=== PATIENT | female | born 1995 | race Two or more races ===

== ENCOUNTER 2024-08-19 15:33 | Observation (INO) | payer MEDICAID, SELFPAY ==
[2024-08-19] VITALS (32 sets, daily range): BP systolic 123–196; BP diastolic 68–109; PULSE 73–92; RESP 18–99; TEMP 36.6–37; BMI 50.0
[2024-08-19] MEDS: LABETALOL 100 MG TABLET 200 MG PO (15:58)
--- NOTE | 2024-08-19 16:23 | PD.LDHP ---
Documentation for date of: 08/19/24 OB Labor/Induct. HPI History of Present Illness : 1 History of present illness: 29 y/o @36w dated by 21 wk US , was being seen for an NST. Patient is a Chronic HTN on labetalol . Today on arrival, the BP was in 150 systolic. Increase in labetalol was ordered, however she went to persistent severe range on consecutive measurements. Patient denies any preclampsia symptoms of headache, blurred vision, chest pain or SOB. Patient is also a Type 2 DM on insulin. History of Present Dating criteria: based on 2nd trimester US only Labs Narrative: NIPT wnl Anatomy scan wnl GC negative Review of Systems Review of Systems Systems Reviewed: All systems reviewed, normal except as documented Constitutional Constitutional: Denies fever(s) Cardiovascular Cardiovascular: Denies chest pain and Denies dyspnea Respiratory Respiratory: Denies cough and Denies dyspnea Musculoskeletal Musculoskeletal: Reports as per HPI Meds Home Medications and Allergies Allergies Allergy/AdvReac Type Severity Reaction Status Date / Time No Known Allergies Allergy Verified 03/08/20 11:48 OB Exam Physical Exam Vital signs: Pulse BP 84 191/103 H 08/19/24 16:17 08/19/24 16:17 Constitutional Constitutional: no acute distress Routine HEENT Exam Head: Present normocephalic and atraumatic Eye: Present EOMI and PERRL ENT: Present mucous membranes moist Routine Neck Exam Neck: Present supple and trachea midline Routine Cardiovascular Exam Cardiovascular: Present RRR Routine Abdominal Exam Abdominal: Present soft and normoactive bowel sounds Routine Extremities Exam Extremities: Present full ROM Routine Skin Exam Skin: Present intact, dry and warm Routine Neurological Exam Neurological: Present alert, oriented X3 and CN II-XII intact Routine Psychiatric Exam Psychiatric: Present normal affect and normal thought process OB Results Labs 08/19/24 16:06 08/19/24 16:06 Impressions Impression: 29 y/o @36w per 2nd trimester US, admitted for observation Labetalol IV 20 given for severe BP (BP cuff was adjusted to an appropriate size, possibility of inappropriate reading cannot be excluded at 1546 to 1617) CHTN , on meds >incraesed labetalol to 400 [facility]ID [facility] BP measurements were under control All preclampsia labs wnl asymptomatic type 2 DM on insulin lantus 30 bedtime cephalic on US OB Assessment & Plan Additional Plan Additional Plan Comment: Admit for Serial BP monitoring and observation Continuos FHT monitoring IV labetalol for BP control was already given BMZ for pulmonary maturity BS check 4 times daily , lantus to continue, Sliding scale added for covering incraese of BS with insulin GBS collection
[2024-08-19 16:31] LABS: Basophils % (Auto) 0 % (0-2.5); Eosinophils % (Auto) 0 % (0-10); Hemoglobin 10.7 g/dL (12.0-16.0); Immature Granulocytes % (Auto) 0 % (0-0); Immature Granulocytes Auto 0.03 Thou/mm3 (0.00-0.00); Lymphocytes # (Auto) 1.9 Thou/mm3 (1.0-4.8); Lymphocytes % (Auto) 20 % (10-50); Mean Corpuscular HGB Conc 33.4 g/dl (31.0-37.0); Mean Corpuscular Hemoglobin 28.7 pg (25.0-35.0); Mean Corpuscular Volume 86 fL (80-100); Monocytes # (Auto) 0.5 Thou/mm3 (0.0-0.8); Monocytes % (Auto) 6 % (0-12); Neutrophils # (Auto) 6.9 Thou/mm3 (1.8-7.7); Neutrophils % (Auto) 73 % (37-80); Nucleated Red Blood Cell % 0 /100 WBC (0); Platelet Count 166 Thou/mm3 (140-440); Red Blood Count 3.73 Miln/mm3 (4.00-5.20); White Blood Count 9.4 Thou/mm3 (3.6-11.0)
[2024-08-19] MEDS: LABETALOL INJ 5 MG/ML VIAL 20 ML 20 MG IVP (16:50)
[2024-08-19 16:53] LABS: INR 0.9 (0.9-1.3); Partial Thromboplastin Time 25.6 Seconds (22.0-36.0); Prothrombin Time 10.3 Seconds (9.0-12.2)
[2024-08-19 16:54] LABS: Fibrinogen 660 mg/dL (175-375)
[2024-08-19 16:56] LABS: Alanine Aminotransferase 11 U/L (10-49); Albumin, Serum 3.7 gm/dL (3.5-5.0); Albumin/Globulin Ratio 1.2 (1.2-2.2); Alkaline Phosphatase 107 U/L (46-116); Anion Gap 8 (7-16); Aspartate Amino Transferase 14 U/L (0-34); BUN/Creatinine Ratio 14 Ratio (12-20); Bilirubin,Total 0.3 mg/dL (0.3-1.2); Blood Urea Nitrogen 11 mg/dL (9-23); Calcium 9.5 mg/dL (8.3-10.6); Calcium (Corrected) 9.7 mg/dL (8.5-10.1); Carbon Dioxide 21.8 mMol/L (20.0-31.0); Chloride 107 mMol/L (98-107); Creatinine (Component) 0.8 mg/dL (0.6-1.3); Globulin 3.1 gm/dL (2.3-3.5); Glucose 123 mg/dL (74-106); Osmolality,Calculated 274 (275-295); Sodium 137 mMol/L (136-145); Total Protein 6.8 gm/dL (5.7-8.2); eGFR > 60 See Note
[2024-08-19] MEDS: BETAMET ACET/BETAMET NA PH (Celestone) 6 MG/ML VIAL 12 MG IM (17:31)
[2024-08-19 17:57] LABS: Collection Type, Urine Clean Catch
[2024-08-19 18:15] LABS: LDH (Lactate Dehydrogenase) 196 U/L (120-246); Uric Acid 6.1 mg/dL (3.1-7.8)
[2024-08-19 18:41] LABS: Syphilis Nonreactive (Nonreactive)
[2024-08-19 18:47] LABS: Bacteria,Urine Rare; Bilirubin,Urine Negative (Negative); Blood,Urine Negative (Negative); Clarity,Urine Clear (Clear/Hazy); Color,Urine Lt-Yellow (Lt Yel-Yel); Glucose, Urine Negative (Negative); Ketones,Urine Negative (Negative); Leukocyte Esterase,Urine Positive (Negative); Nitrite,Urine Negative (Negative); PH,Urine 6.5 (5.0-7.0); Protein,Urine Negative (Neg - Trace); RBC,Urine 1 /hpf (0-3); Specific Gravity,Urine 1.021 (1.001-1.035); Squamous Epithelial Cell,Urine 5 /hpf (0-5); Urobilinogen,Urine Negative mg/dL (0.0-1.0); WBC,Urine 2 /hpf (0-5)
[2024-08-19] MEDS: INSULIN HUM REGULAR 1 UNIT/0.01 ML (PER UNIT) SC (21:40)
[2024-08-19] MEDS: INSULIN GLARGINE (Lantus) 5 UNIT/0.05 ML (PER 5 UNITS) 30 UNIT SC (22:33)
[2024-08-20] VITALS (29 sets, daily range): BP systolic 105–150; BP diastolic 56–85; PULSE 70–101; RESP 16–17; TEMP 36.4–36.8
[2024-08-20] MEDS: INSULIN GLARGINE (Lantus) 5 UNIT/0.05 ML (PER 5 UNITS) 10 UNIT SC (08:23)
[2024-08-20] MEDS: LABETALOL 100 MG TABLET 400 MG PO (08:25)
--- NOTE | 2024-08-20 12:25 | PC.NURSE ---
PT IS NOT ON MAGNESIUM SULFATE, NO DAILY WEIGHT NEEDED
[2024-08-20] MEDS: INSULIN HUM REGULAR 1 UNIT/0.01 ML (PER UNIT) SC (13:16)
--- NOTE | 2024-08-20 13:17 | PC.NURSE ---
INSULIN ORDER IS 1HOUR AFTER MEALS
--- NOTE | 2024-08-20 14:06 | XR_ITS ---
Examination: Complete OB ultrasound greater than 14 weeks Date and time of exam: August 20, 2024 1426 hours INDICATIONS: Diagnosis -induced hypertension, secondary diagnosis type 2 diabetes, preop labor induction Findings: Viable intrauterine single fetus with single amniotic sac presentation cephalic Cardiac motion 157 BPM Placenta posterior grade 2 Umbilical cord insertion 3 vessel seen Amniotic fluid index 10.0 cm spine anterior Cervix 2.7 cm Ovaries obscured by bowel gas. Composite estimated gestational age based on BPD, head circumference, abdominal circumference, femur length is 35 weeks 6 days Estimated weight 2843 g. Survey of intracranial anatomy, spinal anatomy, abdominal anatomy, four-chamber heart performed with no abnormalities identified. Impression: Viable intrauterine gestation cephalic presentation.
--- NOTE | 2024-08-20 14:07 | XR_ITS ---
Examination: Biophysical profile, ultrasound Date and time of exam: August 20, 2024 1416 hours INDICATIONS: -induced hypertension, secondary diagnosis type 2 diabetes Technique: Multiple transabdominal sonographic images of the pelvis abdomen obtained. Attention is directed to the breathing movement, gross body movement, amniotic fluid volume and tone. Findings: Amniotic fluid index 9.4 cm Total biophysical profile is 8 of 8. breathing movement is 2. Gross body movement is 2. tone is 2. Qualitative amniotic fluid volume is 2 Impression: Biophysical profile is 8 of 8.
[2024-08-20] MEDS: BETAMET ACET/BETAMET NA PH (Celestone) 6 MG/ML VIAL 12 MG IM (16:47)
--- NOTE | 2024-08-20 17:00 | ESDS_ITS ---
DS: Providers Provider Date of admission: 08/19/24 15:33 Primary care physician: Physician No Primary/Family Admitting Provider: Esperanza Bañuelos MD Attending Provider on Admission: Esperanza Bañuelos MD Attending Provider on DC: Esperanza Bañuelos MD Discharging Provider: Esperanza Bañuelos MD DS: Diagnosis Problem List Completed Was Problem List Reviewed/Reconciled?: Yes Summary/Hosp Course Brief History: 29 y/o @36w1d today , was admitted for observation for increased BP during NST appointment. Overnight with labetalol 400 BID, BP has been in normal ranges. BS were elevated ( secondary to BMZ possible, covered by ISS) Denies symptoms of labor . Patient denies any preclampsia symptoms of headache, blurred vision, chest pain or SOB. Patient was given a insulin Rx increase of lantus o 35 bedtime and 10 morning was advised Given her BP and BS, will Induce her at 37week. Time Spent with Patient Time attestation: Total time spent providing and/or coordinating discharge services: Exam Vital Signs Temp Pulse Resp BP 97.6 F 93 17 113/65 08/20/24 16:00 08/20/24 16:56 08/20/24 16:00 08/20/24 16:56 Constitutional Constitutional: no acute distress Routine HEENT Exam Head: Present normocephalic and atraumatic Eye: Present EOMI and PERRL ENT: Present mucous membranes moist Routine Neck Exam Neck: Present supple and trachea midline Routine Respiratory Exam Respiratory: Present chest non-tender, lungs clear, normal breath sounds and no resp distress Routine Cardiovascular Exam Cardiovascular: Present RRR Routine Abdominal Exam Abdominal: Present soft and normoactive bowel sounds Routine Extremities Exam Extremities: Present full ROM Routine Skin Exam Skin: Present intact, dry and warm Routine Neurological Exam Neurological: Present alert, oriented X3 and CN II-XII intact Routine Psychiatric Exam Psychiatric: Present normal affect and normal thought process Discharge Plan Plan Patient Disposition: HOME (Self Care) Prescriptions/Referrals Prescriptions/Med Rec: New insulin glargine [Lantus Solostar U-100 Insulin] 100 unit/mL (3 mL) insulin pen 10 unit subcut QAM Qty: 15 1RF insulin glargine [Lantus Solostar U-100 Insulin] 100 unit/mL (3 mL) insulin pen 35 unit subcut QPM Qty: 15 2RF (DME) pen needle, diabetic [1st Tier Unifine Pentips] 29 gauge x 1/2 needle See Rx Instructions .Route Qty: 100 0RF Rx Instructions: As directed labetalol 200 mg tablet 400 mg PO BID Qty: 30 0RF No Action aspirin 81 mg Tablet,Chewable 81 mg PO DAILY labetalol 100 mg Tablet 100 mg PO BID Lantus U-100 Insulin 100 unit/mL Cartridge 30 unit SUBCUT HS Vitamin 27 mg iron- 800 mcg Tablet 1 tab PO DAILY Referrals: No Primary/Family,Physician [Primary Care Provider] - Patient/Caregiver Discharge Instructions Discharge Activity: resume usual activities Other Discharge Activity Instructions:: PT IS TO FOLLOW UP WITH DR BAÑUELOS AT SCHEDULED APPT ON MONDAY FOR NST/BPP Education Materials: Healthy Meals for Diabetes, Labor Induction Print Language: Armenian Stand Alone Forms: Dania Award Info., Patient Portal Info Letter, Work/Release Restrictions Discharge Order Discharge Orders: Discharge (Routine); Ordered 08/20/24 Ordered By: Esperanza Bañuelos Planned Discharge Date 08/20/24
--- NOTE | 2024-08-20 17:12 | PC.NURSE ---
RN AT BEDSIDE DISCUSSING DISCHARGE INFORMATION. PT IS GOING TO BE INCREASING LANTUS INJECTION AT NIGHT TO 35 UNITS, AND ADMINISTER 10 UNITS IN THE MORNING. PT ALSO IS INCREASING LABETALOL TO 400MG TWICE A DAY. FOLLOW UP WITH DR BAÑUELOS ON MONDAY FOR NST AND BPP. PT STATES UNDERSTANDING AND RN USED TEACHBACK TO ENSURE UNDERSTANDING
== END 2024-08-20 17:58 | disposition home or self-care (01) ==
PROVIDERS: Admitting Provider Student in an Organized Health Care Education/Training Program; Visit Provider Student in an Organized Health Care Education/Training Program
DX: O10.913 Unspecified pre-existing hypertension complicating pregnancy, third trimester (principal); O24.113 Pre-existing type 2 diabetes mellitus, in pregnancy, third trimester; E11.9 Type 2 diabetes mellitus without complications; Z79.4 Long term (current) use of insulin; Z3A.35 35 weeks gestation of pregnancy
CPT/HCPCS: 36415; 59025; 59899; 76805; 76819; 80053; 81001; 83615; 84550; 85025; 85384; 85610; 85730; 86780; 87077; 87081; 96372; J0702; J1815; J3490; A9270; J1920

== ENCOUNTER 2024-08-26 14:18 | Outpatient (RCR) | payer MEDICAID, SELFPAY ==
--- NOTE | 2024-08-15 14:20 | XR_ITS ---
Examination: Biophysical profile, ultrasound Date and time of exam: August 15, 2019 12/18/1980 hours INDICATIONS: Diagnosis maternal obesity, secondary diagnosis type 2 diabetes Technique: Multiple transabdominal sonographic images of the pelvis abdomen obtained. Attention is directed to the breathing movement, gross body movement, amniotic fluid volume and tone. Findings: Amniotic fluid index 12 cm Total biophysical profile is 8 of 8. breathing movement is 2. Gross body movement is 2. tone is 2. Qualitative amniotic fluid volume is 2 Impression: Biophysical profile is 8 of 8.
[2024-08-15 15:36] VITALS: BP 141/95; PULSE 86; RESP 16; TEMP 36.7
--- NOTE | 2024-08-19 14:23 | XR_ITS ---
Examination: Biophysical profile, ultrasound Date and time of exam: August 19, 2024 1436 hours INDICATIONS: Diabetes, diagnosis hyperglycemia diagnosis obesity complicating , diagnosis -induced hypertension Technique: Multiple transabdominal sonographic images of the pelvis abdomen obtained. Attention is directed to the breathing movement, gross body movement, amniotic fluid volume and tone. Findings: Amniotic fluid index 11.5 cm Total biophysical profile is 8 of 8. breathing movement is 2. Gross body movement is 2. tone is 2. Qualitative amniotic fluid volume is 2 Impression: Biophysical profile is 8 of 8.
[2024-08-19 15:46] VITALS: BP 157/90; PULSE 90; RESP 16; TEMP 37.2
--- NOTE | 2024-08-22 14:21 | XR_ITS ---
Examination: Biophysical profile, ultrasound Date and time of exam: August 22, 2024 1422 hours INDICATIONS: Diagnosis maternal obesity, diagnosis of central hypertension complicating Technique: Multiple transabdominal sonographic images of the pelvis abdomen obtained. Attention is directed to the breathing movement, gross body movement, amniotic fluid volume and tone. Findings: Amniotic fluid index 11.5 cm Total biophysical profile is 8 of 8. breathing movement is 2. Gross body movement is 2. tone is 2. Qualitative amniotic fluid volume is 2 Impression: Biophysical profile is 8 of 8.
[2024-08-22 15:40] VITALS: BP 121/63; PULSE 74; RESP 18; TEMP 36.7
--- NOTE | 2024-08-26 14:21 | XR_ITS ---
Examination: Biophysical profile, ultrasound Date and time of exam: August 26, 2024 1439 hours INDICATIONS: Diagnosis essential hypertension, diagnosis obesity complicating Technique: Multiple transabdominal sonographic images of the pelvis abdomen obtained. Attention is directed to the breathing movement, gross body movement, amniotic fluid volume and tone. Findings: Amniotic fluid index 14.4 cm Total biophysical profile is 8 of 8. breathing movement is 2. Gross body movement is 2. tone is 2. Qualitative amniotic fluid volume is 2 Impression: Biophysical profile is 8 of 8.
[2024-08-26 17:20] VITALS: BP 146/83; PULSE 89; RESP 18
== END 2024-08-26 23:59 | disposition home or self-care (01) ==
LOC: S4S1 14:18
PROVIDERS: PCP Family Medicine; Referring Provider Student in an Organized Health Care Education/Training Program; Visit Provider Student in an Organized Health Care Education/Training Program
DX: O24.113 Pre-existing type 2 diabetes mellitus, in pregnancy, third trimester (principal); E11.65 Type 2 diabetes mellitus with hyperglycemia; O99.213 Obesity complicating pregnancy, third trimester; E66.9 Obesity, unspecified; O16.3 Unspecified maternal hypertension, third trimester; Z3A.37 37 weeks gestation of pregnancy
CPT/HCPCS: 59025; 76819

== ENCOUNTER 2024-08-26 17:20 | Inpatient (IN) | payer MEDICAID, SELFPAY ==
[2024-08-26] VITALS (16 sets, daily range): BP systolic 107–186; BP diastolic 58–103; PULSE 73–90; TEMP 36.6–36.8; BMI 48.5
--- NOTE | 2024-08-26 19:24 | ESHP_ITS ---
Documentation for date of: 08/26/24 OB Labor/Induct. HPI History of Present Illness : 1 History of present illness: 29 y/o @37w, admitted for IOL for non reactive NST. Patient is also a Chrnic HTN on labetalol , uncontrolled and type 2 diabetic on insulin, was scheduled for delivery tomorrow. Denied any contraction , leaking bleeidng History of Present Dating criteria: LMP confirmed by 2nd trimester US Meds Home Medications and Allergies Home Medications ?Medication ?Instructions ?Recorded ?Confirmed ?Type aspirin 81 mg chewable tablet 81 mg PO DAILY 08/19/24 08/19/24 History vits no.124-ferrous fum 1 tab PO DAILY 08/19/24 08/26/24 History 27 mg iron-folic acid 800 mcg tablet ( Vitamin) Allergies Allergy/AdvReac Type Severity Reaction Status Date / Time No Known Allergies Allergy Verified 08/26/24 19:46 OB Exam Physical Exam Vital signs: Pulse BP 86 134/78 H 08/26/24 19:15 08/26/24 19:15 Constitutional Constitutional: no acute distress Routine HEENT Exam Head: Present normocephalic and atraumatic Eye: Present EOMI and PERRL ENT: Present mucous membranes moist Routine Neck Exam Neck: Present supple and trachea midline Routine Cardiovascular Exam Cardiovascular: Present RRR Routine Abdominal Exam Abdominal: Present soft and normoactive bowel sounds Detailed Labor and Delivery Exam Dilation (cm): 1 Effacement (%): thick Membranes: intact Baseline heart rate: 140 monitor 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[employer] variability: Minimal (3-5) Routine Extremities Exam Extremities: Present full ROM Routine Skin Exam Skin: Present intact, dry and warm Routine Neurological Exam Neurological: Present alert, oriented X3 and CN II-XII intact Routine Psychiatric Exam Psychiatric: Present normal affect and normal thought process OB Results Impressions Impression: 29 y/o @37w, IOL for uncontrolled HTN on meds, [id number] on insulin GBS positive Cx 1/thick cephalic OB Assessment & Plan Additional Plan Additional Plan Comment: Cervidil to be placed GBS prophylaxis Lantus to continue , BS measurements 4 times daily Consistent carb diet conbt FHT monitor
[2024-08-26 20:00] LABS: Basophils % (Auto) 0 % (0-2.5); Eosinophils # (Auto) 0.1 Thou/mm3 (0.0-0.5); Eosinophils % (Auto) 1 % (0-10); Hematocrit 35.1 % (36.0-46.0); Hemoglobin 11.7 g/dL (12.0-16.0); Immature Granulocytes % (Auto) 0 % (0-0); Immature Granulocytes Auto 0.03 Thou/mm3 (0.00-0.00); Lymphocytes # (Auto) 2.3 Thou/mm3 (1.0-4.8); Lymphocytes % (Auto) 21 % (10-50); Mean Corpuscular HGB Conc 33.3 g/dl (31.0-37.0); Mean Corpuscular Hemoglobin 28.8 pg (25.0-35.0); Mean Corpuscular Volume 87 fL (80-100); Monocytes # (Auto) 0.6 Thou/mm3 (0.0-0.8); Monocytes % (Auto) 5 % (0-12); Neutrophils % (Auto) 73 % (37-80); Nucleated Red Blood Cell % 0 /100 WBC (0); Platelet Count 182 Thou/mm3 (140-440); RDW Standard Deviation 43.1 fL (36.4-46.3); Red Blood Count 4.06 Miln/mm3 (4.00-5.20); White Blood Count 10.9 Thou/mm3 (3.6-11.0)
[2024-08-26 20:09] LABS: Collection Type, Urine Clean Catch
[2024-08-26 20:16] LABS: Amphetamine/Metham Scrn,Ur OB Negative (Negative); Benzoylecgonine Screen, Ur OB Negative (Negative); Opiate Screen,Urine OB Negative (Negative); THC Screen,Urine OB Negative (Negative)
[2024-08-26 20:18] LABS: Alanine Aminotransferase 14 U/L (10-49); Albumin, Serum 3.7 gm/dL (3.5-5.0); Albumin/Globulin Ratio 1.2 (1.2-2.2); Alkaline Phosphatase 118 U/L (46-116); Anion Gap 10 (7-16); Aspartate Amino Transferase 15 U/L (0-34); BUN/Creatinine Ratio 20 Ratio (12-20); Bilirubin,Total 0.3 mg/dL (0.3-1.2); Blood Urea Nitrogen 16 mg/dL (9-23); Calcium 9.4 mg/dL (8.3-10.6); Calcium (Corrected) 9.6 mg/dL (8.5-10.1); Carbon Dioxide 21.7 mMol/L (20.0-31.0); Chloride 104 mMol/L (98-107); Creatinine (Component) 0.8 mg/dL (0.6-1.3); Globulin 3.2 gm/dL (2.3-3.5); Glucose 114 mg/dL (74-106); Osmolality,Calculated 274 (275-295); Potassium 3.8 mMol/L (3.4-5.1); Sodium 136 mMol/L (136-145); Total Protein 6.9 gm/dL (5.7-8.2); Uric Acid 6.7 mg/dL (3.1-7.8); eGFR > 60 See Note
[2024-08-26 20:34] LABS: Syphilis Nonreactive (Nonreactive)
[2024-08-26 20:56] LABS: INR 0.9 (0.9-1.3); Partial Thromboplastin Time 24.8 Seconds (22.0-36.0); Prothrombin Time 10.3 Seconds (9.0-12.2)
[2024-08-26] MEDS: LABETALOL 100 MG TABLET 400 MG PO (21:03)
[2024-08-26 21:04] LABS: Fibrinogen 608 mg/dL (175-375)
[2024-08-26] MEDS: Ampicillin Inj 2,000 MG in SODIUM CHLORIDE 0.9% (P) 100 ML 200 MG IV (21:05)
[2024-08-26] MEDS: INSULIN GLARGINE (Lantus) 5 UNIT/0.05 ML (PER 5 UNITS) 35 UNIT SC (21:06)
[2024-08-26 21:07] LABS: Bacteria,Urine Rare; Bilirubin,Urine Negative (Negative); Blood,Urine Negative (Negative); Clarity,Urine Clear (Clear/Hazy); Color,Urine Colorless (Lt Yel-Yel); Glucose, Urine Negative (Negative); Ketones,Urine Negative (Negative); Leukocyte Esterase,Urine Positive (Negative); Nitrite,Urine Negative (Negative); Protein,Urine Negative (Neg - Trace); RBC,Urine 2 /hpf (0-3); Specific Gravity,Urine 1.008 (1.001-1.035); Squamous Epithelial Cell,Urine 1 /hpf (0-5); Urobilinogen,Urine Negative mg/dL (0.0-1.0); WBC,Urine 2 /hpf (0-5)
[2024-08-26] MEDS: DINOPROSTONE 10 MG VAG.SUPP VAGINAL (22:10)
[2024-08-27] VITALS (59 sets, daily range): BP systolic 115–167; BP diastolic 56–131; PULSE 66–87; RESP 18; TEMP 36.6–36.9
[2024-08-27] MEDS: Ampicillin Inj 1,000 MG in SODIUM CHLORIDE 0.9% (P) 50 ML 50 MG IV ×2 (01:18→22:18)
[2024-08-27] MEDS: LABETALOL 100 MG TABLET 400 MG PO ×2 (09:07→20:20)
[2024-08-27] MEDS: INSULIN GLARGINE (Lantus) 5 UNIT/0.05 ML (PER 5 UNITS) 10 UNIT SC (09:08)
[2024-08-27] MEDS: RINGERS LACTATED 1000 ML 1,000 ML 100 ML IV ×3 (10:28→22:15)
[2024-08-27] MEDS: MISOPROSTOL 50 mCg TABLET PO ×2 (12:59→18:12)
--- NOTE | 2024-08-27 13:04 | PD.LDPN ---
Documentation for date of: 08/27/24 OB Labor Progress Note Pain Control Comments: Can get epidural when desired Pelvic Exam Dilation (cm): 2-3 Effacement (%): 50 Status Comments: Category 1 heart tone Assessment and Plan Comments: Cytotec per protocol
[2024-08-27] MEDS: INSULIN LISPRO (AdmeLOG) 1 UNIT/0.01 ML UNIT SC (14:32)
[2024-08-27] MEDS: INSULIN GLARGINE (Lantus) 5 UNIT/0.05 ML (PER 5 UNITS) 35 UNIT SC (20:22)
[2024-08-27] MEDS: fentaNYL CIT INJ 50 mCg/ML AMP 2ML 100 MCG IV (22:01)
[2024-08-28] VITALS (38 sets, daily range): BP systolic 117–175; BP diastolic 63–94; PULSE 63–94; RESP 15–24; TEMP 36.4–36.9; O2SAT 94–100
[2024-08-28] MEDS: FAMOTIDINE INJ 10 MG/ML VIAL 2 ML 20 MG IV (02:00)
[2024-08-28] MEDS: ceFAZolin/D5W 2 GM IV 2 GM/100 ML BAG IV (02:01)
[2024-08-28] MEDS: CITRIC ACID/SODIUM CITR 15 ML UDC (BICITRA) 30 ML PO (02:01)
--- NOTE | 2024-08-28 02:10 | PD.LDPN ---
Documentation for date of: 08/28/24 OB Labor Progress Note Pelvic Exam Dilation (cm): 2-3 Effacement (%): 50 Amniotic membrane status: Intact Status Comments: Category 2 heart tone unresponsive to resuscitative measures Assessment and Plan Comments: Primary low-transverse for category 2 heart tone Antibiotic prophylaxis DVT prophylaxis
--- NOTE | 2024-08-28 08:16 | PD.LDDELS ---
Data (Rausch) Data : 1 Para: 0 Term: 0 : 0 : 0 Delivery Data (Rausch) Labor Data ROM Date: 08/28/24 ROM Time: 02:41 Rupture Type: AROM Delivery Data Labor Onset Stage 1 Date: 08/28/24 Labor Onset Stage 1 Time: 02:07 Labor Onset Stage 2 Date: 08/28/24 Labor Onset Stage 2 Time: 02:33 Delivery Date: 08/28/24 Delivery Time: 02:42 Gestational age (weeks): 37 Gestational age (days): 1 Placenta Delivery Date: 08/28/24 Placenta Delivery Time: 02:44 Delivered by: Esperanza Crisostomo Delivery nurse: Juanita Steve Other staff at delivery: Nursery Nurse Other staff at delivery: RT Other staff at delivery: Anamika Castro Delivery Method Delivery: Delivery Type: Primary Anesthesia Type Primary Anesthesia: Spinal EBL Estimated blood loss (ml): 400 [place] Data (Rausch) [place] Data Infant Gender: Female Weight Grams: 3620 1 Minute Total: 8 5 Minute Total: 8 10 Minute Total: 9
--- NOTE | 2024-08-28 08:18 | PD.GYNPROC ---
Operative Note - PELLETIZER TENDER Procedure Date of procedure: 08/28/24 Procedure Performed: Primary low-transverse Indication: Category 2 heart tones unresponsive to resuscitative measures Pre-Op diagnosis: Same Post-Op diagnosis: Same Anesthesia type: Spinal Procedure description: Informed consent was obtained and the patient was taken to the operating room.? Identity was confirmed by double identifiers and she was placed on the operating table.The abdomen and perineum were prepped in the usual sterile fashion and a Rosa catheter was placed to continuous drainage.? Sterile drapes were applied.??A Pfannenstiel skin incision was made with a scalpel and carried to the subcutaneous fat up to the rectus fascia.? The rectus fascia was incised on either side of the midline and the incisions were extended bilaterally.? The fascia was gently dissected off the ventral surface of the rectus muscle both superiorly and inferiorly. Carefully a peritioneal window craeted hysterotomy incision made and extended bluntly with finger. Rupture of membranes revealed clear fluid. The baby was found in cephalic position delivered via vertex. The umbilical cord , was doubly clamped, divided and the was handed over to the waiting team.? placenta delivered by controlled cord traction . The interior of the uterus was now thorougly cleaned of all blood and debris and membranes.? 2 cavities and the uterus verified the? hysterotomy was closed using 0 vicryl suture in double layers. Once the repair was completed the hysterotomy was inspected, was noted to be adequately hemostatic . Muscle oozing stopped by bovie. The rectus fascia was repaired using Vicry 0 in a running fashion.? The subcutaneous layer was now, approximated with 3-0 vicryl in double layers.? All bleeding points were cauterized using the Bovie.?The skin was closed using 4-0 Monocryl in a subcuticular fashion.? The skin was cleaned and a sterile dressing was applied. The patient was now undraped, the abdomen and back were thoroughly cleaned and she was now transferred to the recovery room in a stable Estimated blood loss (ml): 400 Surgical staff Operation Date: 08/28/24 02:07 Case Staff INSIDE TECHNICAL SALES REPRESENTATIVE: Krunal Chamorro RNstate assessed properties director: Livia Hall Diagnosis Problem List Completed Was Problem List Reviewed/Reconciled?: Yes
[2024-08-28] MEDS: INSULIN GLARGINE (Lantus) 5 UNIT/0.05 ML (PER 5 UNITS) 10 UNIT SC (08:47)
[2024-08-28] MEDS: OXYTOCIN in NS 20 units 20 UNIT/1,000 ML BAG 125 UNIT IV (08:51)
[2024-08-28 09:43] LABS: Basophils % (Auto) 0 % (0-2.5); Eosinophils % (Auto) 0 % (0-10); Hematocrit 31.1 % (36.0-46.0); Hemoglobin 10.6 g/dL (12.0-16.0); Immature Granulocytes % (Auto) 0 % (0-0); Immature Granulocytes Auto 0.04 Thou/mm3 (0.00-0.00); Lymphocytes # (Auto) 1.8 Thou/mm3 (1.0-4.8); Lymphocytes % (Auto) 14 % (10-50); Mean Corpuscular HGB Conc 34.1 g/dl (31.0-37.0); Mean Corpuscular Hemoglobin 29.2 pg (25.0-35.0); Mean Corpuscular Volume 86 fL (80-100); Monocytes # (Auto) 0.7 Thou/mm3 (0.0-0.8); Monocytes % (Auto) 5 % (0-12); Neutrophils # (Auto) 10.4 Thou/mm3 (1.8-7.7); Neutrophils % (Auto) 81 % (37-80); Nucleated Red Blood Cell % 0 /100 WBC (0); Platelet Count 148 Thou/mm3 (140-440); RDW Standard Deviation 42.8 fL (36.4-46.3); Red Blood Count 3.63 Miln/mm3 (4.00-5.20); White Blood Count 12.9 Thou/mm3 (3.6-11.0)
--- NOTE | 2024-08-28 10:53 | PD.LDHP ---
Documentation for date of: 08/28/24 OB Labor/Induct. HPI History of Present Illness : 1 Indication for induction: medical complication History of present illness: 29 y/o @37w, admitted for IOL for non reactive NST. Patient is also a Chrnic HTN on labetalol , uncontrolled and type 2 diabetic on insulin, was scheduled for delivery tomorrow. Denied any contraction , leaking bleeidng History of Present Dating criteria: LMP confirmed by 2nd trimester US Adequate Care: Yes Labs Labs: Negative: Hepatitis B, HIV, Chlamydia and Gonorrhea and Unknown: Group Beta Strep Meds Home Medications and Allergies Home Medications ?Medication ?Instructions ?Recorded ?Confirmed ?Type aspirin 81 mg chewable tablet 81 mg PO DAILY 08/19/24 08/26/24 History vits no.124-ferrous fum 1 tab PO DAILY 08/19/24 08/26/24 History 27 mg iron-folic acid 800 mcg tablet ( Vitamin) Allergies Allergy/AdvReac Type Severity Reaction Status Date / Time No Known Allergies Allergy Verified 08/26/24 19:46 OB Exam Physical Exam Vital signs: Temp Pulse Resp BP Pulse Ox O2 Del Method 97.7 F 74 15 127/82 94 L Room Air 08/28/24 08:15 08/28/24 08:15 08/28/24 08:15 08/28/24 08:15 08/28/24 08:15 08/28/24 08:15 OB Results Labs 08/28/24 09:33 08/26/24 19:42 Labs: Short CBC 08/28/24 Range/Units 09:33 WBC 12.9 H (3.6-11.0) Thou/mm3 Hgb 10.6 L (12.0-16.0) g/dL Hct 31.1 L (36.0-46.0) % Plt Count 148 D (140-440) Thou/mm3
[2024-08-28 12:45] LABS: Band Neutrophils (Manual) 6 % (0-6); Lymphocytes (Manual) 24 % (20-44); Monocytes (Manual) 2 % (2-9); Neutrophils (Manual) 68 % (50-70)
--- NOTE | 2024-08-28 13:25 | PC.NURSE ---
[address] Mckeon for bp parameters for patient, instructed RN to hold 0900 scheduled labetalol for now and continue to monitor her bp
--- NOTE | 2024-08-28 14:31 | PC.SS ---
SS and OUTREACH EDUCATOR received referral to see patient for hx: THC. Current tox report negative for mom and baby. Patient was agreeable to speaking in front of her mother at bedside. Patient was updated for reason of referral. She states she did this early on in due to stress. She has not since then. Patient states the FOB is involved. FOB: Demetrius Lucio. This is her 1st baby. Patient had a baby girl via csection this morning. Patient is breast feeding. Patient has WIC, [place], food stamps. Her care was with Dr. Crisostomo. It Support Engineer is through [facility]. No history of mental illness, domestic violence, CWS intervention and alcohol/drug abuse. FOB will be providing transportation upon discharge. SS provided community resources to include parenting network and warm line. SS updated bedside nurse.
[2024-08-28] MEDS: INSULIN GLARGINE (Lantus) 5 UNIT/0.05 ML (PER 5 UNITS) 35 UNIT SC (21:14)
[2024-08-29] VITALS (8 sets, daily range): BP systolic 113–158; BP diastolic 75–97; PULSE 82–97; RESP 18–23; TEMP 36.7–37.1; O2SAT 96–99
--- NOTE | 2024-08-29 06:04 | PC.NURSE ---
0310 removed wound dressing at 0310, pt tolerated well.
[2024-08-29] MEDS: LABETALOL 100 MG TABLET 400 MG PO ×2 (07:57→21:29)
--- NOTE | 2024-08-29 08:57 | ESPR_ITS ---
Subjective Subjective Interval history: Patient doing well overall. Pain is controlled. She is ambulating no lightheadedness/dizziness. Voiding spontaneously since rehman was removed, no issues. Tolerating regular diet without nausea/vomiting. Passing gas. No fevers/chills, no CP/SOB. Exam Vital Signs Temp Pulse Resp BP Pulse Ox O2 Del Method 98.2 F 82 19 158/97 H 99 Room Air 08/29/24 07:55 08/29/24 07:57 08/29/24 07:55 08/29/24 07:57 08/29/24 07:55 08/29/24 07:55 Narrative Exam General: well developed, well nourished, no acute distress, conversant Cardiac: normal heart rate Lungs: breathing without distress Abdomen: soft, post-gravid, non-tender, no rebound or guarding, pfannenstiel incision covered by dry/clean/intact prineo bandage. Incision well reapproximated. No erythema, drainage or induration. Paper tape dressing removed. Extremities: no pain with palpation of calves, trace edema of BLE Objective Labs 08/28/24 09:33 08/26/24 19:42 Labs: Laboratory Results - last 24 hr 08/28/24 09:33 WBC 12.9 H RBC 3.63 L Hgb 10.6 L Hct 31.1 L MCV 86 MCH 29.2 MCHC 34.1 RDW Std Deviation 42.8 Plt Count 148 D Neut % (Auto) 81 H Lymph % (Auto) 14 Trinity % (Auto) 5 Eos % (Auto) 0 Baso % (Auto) 0 Neut # (Auto) 10.4 H Lymph # (Auto) 1.8 Trinity # (Auto) 0.7 Eos # (Auto) 0.0 Baso # (Auto) 0.0 Immature Gran # (Auto) 0.04 H Absolute Nucleated RBC 0.00 Immature Gran % 0 Neutrophils % (Manual) 68 Monocytes % (Manual) 2 Nucleated RBC % 0 Band Neutrophils 6 Lymphocytes (Manual) 24 Assessment & Plan Problem List (1) delivery delivered: Status: Acute Assessment and plan: Patient is a 29yo G1 [id number] s/p uncomplicated PLTCS for persistent Cat II FHRT while undergoing IOL 2/2 non-reactive NST, doing well on POD 1. Vitals wnl, benign exam. Hemodynamically stable with no evidence of infection. Appropriate change in H/H from 11.7 to 10.6. complicated by: CHTN, taking labetalol 400mg PO BID Pre-existing DM taking lantus 10u am/35u pm and humalog with meals during , was on oral agent prior to Obesity Plan: -Continue routine /post-op care -Continue qid fingersticks and lantus 10u am/35u pm (patient has been declining humalog). Discussed with patient importance of following up with her primary care doctor after discharge to make a plan going forward for T2DM management -Continue labetalol 400mg PO BID (was held for 24hr after since had normotensive bp's, but now mild range so will re-start) -Regular/Diabetic diet -motrin 800mg PO Q8hr, norco 5/325mg PO Q6hr prn pain -Encourage ambulation and use of IS -Anticipate discharge home tomorrow if meeting all milestones (2) Non-reassuring heart rate or rhythm affecting management of fetus: Status: Acute (3) Obesity compl pregn//puerperp: Status: Acute (4) Pre-existing diabetes mellitus affecting childbirth: Status: Acute (5) Pre-existing hypertension complicating childbirth: Status: Acute Time Spent With Patient Time: Total time spent is greater than 50% in coordination of care (as documented) at patient's floor/unit and/or counseling patient:
[2024-08-29] MEDS: INSULIN GLARGINE (Lantus) 5 UNIT/0.05 ML (PER 5 UNITS) 10 UNIT SC (09:12)
[2024-08-29] MEDS: IBUPROFEN TAB 400 MG TABLET 800 MG PO (11:59)
[2024-08-29] MEDS: INSULIN GLARGINE (Lantus) 5 UNIT/0.05 ML (PER 5 UNITS) 35 UNIT SC (21:28)
[2024-08-30 04:00] VITALS: BP 145/85; PULSE 78; RESP 20; TEMP 36.7; O2SAT 99
[2024-08-30] MEDS: IBUPROFEN TAB 400 MG TABLET 800 MG PO (04:53)
[2024-08-30 08:40] VITALS: BP 127/78; PULSE 78; RESP 20; TEMP 36.8; O2SAT 97
[2024-08-30 08:59] VITALS: BP 131/85; PULSE 93
[2024-08-30] MEDS: INSULIN GLARGINE (Lantus) 5 UNIT/0.05 ML (PER 5 UNITS) 10 UNIT SC (08:59)
[2024-08-30] MEDS: LABETALOL 100 MG TABLET 400 MG PO (08:59)
--- NOTE | 2024-08-30 10:11 | PD.LDDS ---
DS: Providers Provider Date of admission: 08/26/24 17:20 Primary care physician: Physician No Primary/Family Admitting Provider: Esperanza Crisostomo MD Attending Provider on Admission: Lorraine Mckeon MD Consults: 08/28/24 02:11 Referral Routine Comment: Attending Provider on DC: Lorraine Mckeon MD Discharging Provider: Lorraine Mckeon MD DS: Diagnosis Discharge Diagnosis (1) Pre-existing hypertension complicating childbirth: Status: Acute (2) Pre-existing diabetes mellitus affecting childbirth: Status: Acute (3) Obesity compl pregn//puerperp: Status: Acute (4) Non-reassuring heart rate or rhythm affecting management of fetus: Status: Acute (5) delivery delivered: Status: Acute Problem List Completed Was Problem List Reviewed/Reconciled?: Yes Summary/Hosp Course Brief History: Dahiana is a 29yo G1 [id number] s/p uncomplicated PLTCS for persistent Cat II FHRT while undergoing IOL 2/2 non-reactive NST, doing well on POD 2. She has had an uncomplicated post-operative course, meeting all milestones and feels ready for discharge home. She is ambulating without lightheadedness, tolerating regular diet no n/v, spontaneously voiding without issue. She has no chest pain or shortness of breath. No fevers or chills. Pain well controlled. Vitals normal, benign exam. Hemodymanically stable with no evidence of infection. Appropriate change in H/H from 11.7 to 10.6. Blood pressures well controlled on labetalol 400mg PO BiD. Blood sugars controlled on twice daily lantus. Will adjust the dose down for discharge to avoid potential for hypoglycemic episodes. New regimen: lantus glargine 10u SQ QAM and 20u SQ QPM. She was instructed to follow up with her primary care doctor for future insulin management. Peripartum Data Procedures: Procedures Operation Date: 08/28/24 02:07 Actual Procedure Side Surgeon p in OB Esperanza Crisostomo MD Status at Discharge Functional status at discharge: independent ambulation Overall status at discharge: patient is back to baseline Time Spent with Patient Time attestation: Total time spent providing and/or coordinating discharge services: Time spent: Less than 30 minutes Exam Vital Signs Temp Pulse Resp BP Pulse Ox O2 Del Method 98.2 F 93 20 131/85 H 97 Room Air 08/30/24 08:40 08/30/24 08:59 08/30/24 08:40 08/30/24 08:59 08/30/24 08:40 08/30/24 08:40 Narrative Exam General: well developed, well nourished, no acute distress, conversant Cardiac: normal heart rate Lungs: breathing without distress Abdomen: soft, post-gravid, non-tender, no rebound or guarding, pfannenstiel incision covered by dry/clean/intact prineo bandage. Incision well reapproximated. No erythema, drainage or induration. Fundus firm at u-2cm. Extremities: no pain with palpation of calves, trace edema of BLE Discharge Plan Plan Patient Disposition: HOME (Self Care) Patient condition on transfer: Stable Prescriptions/Referrals Prescriptions/Med Rec: New insulin glargine 100 unit/mL (3 mL) insulin pen 20 unit subcut QPM Qty: 15 0RF hydrocodone-acetaminophen 5-325 mg Tablet 1 tab PO Q6HR MDD 4 tablets PRN (Reason: Patient rated pain 9 to 10) 10 Days Qty: 12 0RF ibuprofen 800 mg tablet 800 mg PO Q8H PRN (Reason: See Comments) 10 Days Qty: 30 0RF labetalol 200 mg tablet 400 mg PO BID 30 Days Qty: 120 0RF polyethylene glycol 3350 [Miralax] 17 gram powder in packet 17 g PO QDAY Qty: 14 0RF Continued Vitamin 27 mg iron- 800 mcg Tablet 1 tab PO DAILY insulin glargine [Lantus Solostar U-100 Insulin] 100 unit/mL (3 mL) insulin pen 10 unit subcut QAM Qty: 15 1RF Discontinued aspirin 81 mg Tablet,Chewable 81 mg PO DAILY insulin glargine [Lantus Solostar U-100 Insulin] 100 unit/mL (3 mL) insulin pen 35 unit subcut QPM Qty: 15 2RF labetalol 200 mg tablet 400 mg PO BID Qty: 30 0RF Referrals: No Primary/Family,Physician [Primary Care Provider] - Patient/Caregiver Discharge Instructions Discharge Activity: activity as tolerated Other Discharge Activity Instructions:: No heavy lifting more than 10 pounds and vaginal rest for 6 weeks. Do not submerge incision, keep incision clean and dry. No driving while taking narcotic. Schedule an appointment with the supervisor concrete stone fabricating in one week and also OBGYN in 1 week for incision check. Other Discharge Diet Instructions: Diabetic diet Education Materials: Breast Care After , Nutrition While , C Section Dc Print Language: Azerbaijani Activity Restrictions/Additional Instructions: Insulin dose was changed: Upon discharge, continue lantus 10 units in the morning and 20 units in the evening. Continue labetalol 400mg twice daily. Stand Alone Forms: Dania Award Info., Patient Portal Info Letter Discharge Order Discharge Orders: Discharge (Routine); Ordered 08/30/24 Ordered By: Lorraine Mckeon Planned Discharge Date 08/30/24
[2024-08-30 11:00] VITALS: BP 114/75; PULSE 90; RESP 20; TEMP 36.7; O2SAT 97
[2024-08-30 15:05] VITALS: BP 127/78; PULSE 88; RESP 18; TEMP 36.7; O2SAT 99
== END 2024-08-30 18:20 | disposition home or self-care (01) | DRG 540 ==
LOC: S4SX 08-27 09:36 → S4NX 08-28 02:03
PROVIDERS: Admitting Provider Student in an Organized Health Care Education/Training Program; Visit Provider Obstetrics & Gynecology
PROC: 10D00Z1 Extraction of Products of Conception, Low, Open Approach (ICD-10-PCS; CPT 59514; principal; 2024-08-28 02:00)
DX: O99.824 Streptococcus B carrier state complicating childbirth (principal); O24.12 Pre-existing type 2 diabetes mellitus, in childbirth; E11.65 Type 2 diabetes mellitus with hyperglycemia; O10.92 Unspecified pre-existing hypertension complicating childbirth; O99.214 Obesity complicating childbirth; O76 Abnormality in fetal heart rate and rhythm complicating labor and delivery; Z3A.37 37 weeks gestation of pregnancy; Z37.0 Single live birth; Z79.4 Long term (current) use of insulin; Z79.899 Other long term (current) drug therapy
CPT/HCPCS: 36415; 59409; 80053; 80307; 81001; 84550; 85025; 85384; 85610; 85730; 86780; 86850; 86900; 86901; 94762; J0290; J0689; J1815; J2274; J2590; J2795; J3010; J3490; J7050; J7120; A9270; J2270

== ENCOUNTER → 2025-03-18 | Outpatient (CLI) | payer MEDICAID, SELFPAY ==
--- NOTE | 2025-03-18 10:24 | XR_ITS ---
Examination: Hand, left 3 views Technique: Hand AP, oblique, lateral 3 views Date and time of exam: March 18, 2025 1127 hours INDICATIONS: Wrist pain beginning February 2025. FINDINGS: 4 mm displaced chip fracture off the base of the proximal phalanx index finger Carpal bones intact IMPRESSION: 4 mm displaced chip fracture off the base of the proximal phalanx index finger
--- NOTE | 2025-03-18 10:24 | XR_ITS ---
Examination: Wrist, left 3 views Technique: Wrist AP, oblique, lateral 3 views Date and time of exam: March 18, 2025 11:27 AM INDICATIONS: Wrist injury February 2025 FINDINGS: 4 mm displaced chip fracture off the base of the proximal phalanx second digit Radius ulna carpal bones intact IMPRESSION: 4 mm displaced chip fracture off the base of the proximal phalanx second digit
== END | disposition home or self-care (01) ==
PROVIDERS: PCP Physician Assistant; Referring Provider Nurse Practitioner Gerontology; Visit Provider Nurse Practitioner Gerontology
DX: S62.611A Displaced fracture of proximal phalanx of left index finger, initial encounter for closed fracture (principal); X58.XXXA Exposure to other specified factors, initial encounter
CPT/HCPCS: 73110; 73130

== ENCOUNTER 2025-07-31 22:04 | Emergency (ER) | payer MEDICAID, SELFPAY ==
[2025-07-31 22:05] VITALS: BMI 52.9
[2025-07-31 22:17] VITALS: BP 167/95; PULSE 105; RESP 20; TEMP 37.1; O2SAT 95
--- NOTE | 2025-07-31 22:39 | EDNOTE_ITS ---
Upper Respiratory Inf. RME/HPI General Chief Complaint: Flu Like Symptoms Stated Complaint: SOB, LAGOS, SORE THROAT, FEVER Time Seen by Provider: 07/31/25 22:36 Arrival date/time: 07/31/25 22:04 30F with history of DM (now well-controlled and no longer on insulin) presents to ED with 2 days of cough, sore, fevers/chills and LAGOS. Previous had some SOB and N/V, but that has resolved. Limitations: no limitations Related Data Home Medications ?Medication ?Instructions ?Recorded ?Confirmed vits no.[id number]-ferrous fum 1 tab PO DAILY 08/26/24 27 mg iron-folic acid 800 mcg tablet ( Vitamin) Previous Rx's ?Medication ?Instructions ?Recorded insulin glargine 100 unit/mL (3 10 unit (0.1 mL) subcu t QAM #15 mL 08/20/24 mL) subcutaneous pen (Lantus Solostar U-100 Insulin) insulin glargine 100 unit/mL (3 20 unit (0.2 mL) subcu t QPM #15 mL 08/30/24 mL) subcutaneous pen polyethylene glycol 3350 17 gram 17 g PO QDAY #14 ea 0 08/30/24 oral powder packet (Miralax) ondansetron 4 mg disintegrating 4 mg PO Q8H PRN nausea and 07/31/25 tablet vomiting #14 tabs oseltamivir 75 mg capsule (Tamiflu) 75 mg PO BID 5 day s #10 caps 07/31/25 Allergies Allergy/AdvReac Type Severity Reaction Status Date / Time No Known Allergies Allergy Verified 07/31/25 22:09 Review of Systems Review of Systems Systems Reviewed: All systems reviewed, normal except as documented Constitutional Constitutional: Reports as per HPI, Reports chills, Reports fatigue and Reports headache(s) ENT Ears, Nose, Mouth, and Throat: Reports as per HPI, Reports headache(s) and Reports sore throat Cardiovascular Cardiovascular: Reports dyspnea Respiratory Respiratory: Reports as per HPI, Reports cough and Reports dyspnea Gastrointestinal Gastrointestinal: Reports as per HPI, Reports nausea and Reports vomiting Neurologic Neurologic: Reports headache(s) Endocrine Endocrine: Reports fatigue Past Medical History Past Medical History NEUROLOGIC: Negative Neurological Disorders or Seizures CARDIAC: Positive Cardiac Disorders and Hypertension (CHTN ON MEDICATIONS); Negative Congestive Heart Failure RESPIRATORY: Negative Chronic Obstructive Pulmonary Disease (COPD) or Asthma GASTROINTESTINAL: Negative Gastrointestinal Disorders GENITOURINARY: Negative Genitourinary Disorders or Renal Disease REPRODUCTIVE: Negative Previous Pregnancies MUSCULOSKELETAL: Negative Musculoskeletal Disorders ENDOCRINE: Positive Endocrine Disorders and Diabetes Mellitus Type 2 (ON INSULIN); Negative Diabetes Mellitus Type 1 HEMATOLOGIC: Negative Blood Disorders, Anemia or Sickle Cell Disease OTHER HISTORY: Negative Autoimmune Disease, Falls, Blood Transfusions, Blood Transfusion Reaction, Anesthesia Reactions or Cancer Family History FAMILY HISTORY: Negative Family Psychiatric Problems, Family Respiratory Disorders, Family Cardiac Disorders, Family Gastrointestinal Problems, Family Cancer, Family Surgery or Family Anesthesia Reaction Social History SMOKING STATUS: Never smoker ED Exam General Limitations: Present no limitations General appearance: Present alert and in no apparent distress Head Head exam: Present atraumatic ENT ENT exam: Present normal exam, normal oropharynx and mucous membranes moist Neck Neck exam: Present normal inspection, full ROM and trachea midline Chest Chest inspection: Present normal inspection and symmetric chest wall rise Respiratory Respiratory exam: Present normal lung sounds bilaterally Neurological Exam Neurological exam: Present alert and oriented X3 Psychiatric Psychiatric exam: Present normal affect and normal mood Skin Skin exam: Present warm, dry, intact and normal color Course Quality Measures none Orders Category Date Time Status Bedside Influenza A&B Antigen Test NOW Care 07/31/25 22:22 Active Bedside STREP Test NOW Care 07/31/25 22:26 Active Vital Signs Vital signs: Vital Signs Temperature 98.7 F 07/31/25 22:17 Pulse Rate 105 H 07/31/25 22:17 Respiratory Rate 20 07/31/25 22:17 Blood Pressure 167/95 H 07/31/25 22:17 Pulse Oximetry (%) 95 07/31/25 22:17 Oxygen Delivery Method Room Air 07/31/25 22:17 O2 at 95% on RA and WNLs Upper Respiratory Infection MDM Narrative MDM Narrative:: 30F with history of DM (now well-controlled and no longer on insulin) presents to ED with 2 days of cough, sore, fevers/chills and LAGOS. Previous had some SOB and N/V, but that has resolved. Physical exam reveals red oropharynx, but otherwise clear ENT and lungs. Normal WOB. Patient is afebrile, calm, and alert. Flu A+. Residential Sales Manager given. Patient data External records reviewed:: [facility] previous records Clinical information provided by:: patient Social determinants that could affect healthcare access:: none Patient has the following chronic illnesses:: DM How is presenting disease/condition affected by chronic disease/condition?: exacerbated by Evaluation data The following diagnostics were reviewed and interpreted by me:: lab results Lab and/or radiology exams considered but not ordered:: ordered Interpretation Summary: above Medications / Prescriptions Medications or Prescriptions considered but not ordered:: not ordered Medication administrations:: n/a Consultations Consultation(s) initiated? (list below): No Diagnosis Upper Respiratory Differential Diagnosis: upper respiratory infection, croup, otitis media, sinusitis, viral infection, bronchitis, influenza and pharyngitis Most likely diagnosis given after review of the tests above:: flu A Admission Indicated Admission indicated?: not indicated Admission Request Was there a request for admission?: No Disposition Plan Disposition Plan: Discharge Discharge Attestation Discharge Attestation: The patient and all family members were given an opportunity to ask questions and understood the discharge instructions. Discharge instructions specifically effects, indications for sooner follow up or return to the emergency department, and the expected course of current diagnosis. Patient condition: Stable Discharge Plan Plan Patient Disposition: HOME (Self Care) Discharge Disposition comment: Stable Prescriptions/Referrals Prescriptions/Med Rec: New oseltamivir [Tamiflu] 75 mg capsule 75 mg PO BID 5 Days Qty: 10 0RF ondansetron 4 mg tablet,disintegrating 4 mg PO Q8H PRN (Reason: nausea and vomiting) Qty: 14 0RF No Action Vitamin 27 mg iron- 800 mcg Tablet 1 tab PO DAILY insulin glargine [Lantus Solostar U-100 Insulin] 100 unit/mL (3 mL) insulin pen 10 unit subcut QAM Qty: 15 1RF insulin glargine 100 unit/mL (3 mL) insulin pen 20 unit subcut QPM Qty: 15 0RF polyethylene glycol 3350 [Miralax] 17 gram powder in packet 17 g PO QDAY Qty: 14 0RF Problem List Clinical Impression: Influenza A Patient/Caregiver Discharge Instructions Education Materials: ED Influenza (Adult) Additional Instructions: Please follow-up with PCP within 24-48 hours and return immediately if symptoms worsen. Ibuprofen/Tylenol can be used simultaneously for greater fever/pain control. Benadryl is good for cough, congestion, and sleep. Keep hydrated. Advance diet as tolerated. Print Language: Persian Stand Alone Forms: Patient Portal Info Letter PA/DIRECTOR CAREER SERVICES Supervising Physician PA/DIRECTOR CAREER SERVICES Supervising Physician: Dr. Solis
[2025-07-31 22:40] VITALS: PULSE 100; RESP 20; O2SAT 95
== END 2025-07-31 22:45 | disposition home or self-care (01) ==
PROVIDERS: Emergency Provider Emergency Medicine; PCP Family Medicine
DX: J10.1 Influenza due to other identified influenza virus with other respiratory manifestations (principal)
CPT/HCPCS: 87502; 87651; 99281